=== PATIENT | female | born 1970 | race Two or more races ===

== ENCOUNTER 2017-05-11 12:46 | Emergency (ER) | payer OTHER ==
[~2017-05-11] VITALS: Ht 170.2 cm; Wt 97.1 kg
[~2017-05-11 12:46] MED LIST: CYCLOBENZAPRINE10 MG ORAL; IBUPROFEN600 MG ORAL
[2017-05-11 13:34] LABS: BASOPHILS % (AUTO) 1.1 % (0.0-2.0); EOSINOPHILS % (AUTO) 1.2 % (0.0-3.0); LYMPHOCYTES % (AUTO) 16.3 % (20.0-45.0); MEAN CORPUSCULAR HEMOGLOBIN 32.8 PG (27.0-31.0); MEAN CORPUSCULAR HGB CONC 33.7 G/DL (32.0-36.0); MEAN CORPUSCULAR VOLUME 97 FL (80-99); MEAN PLATELET VOLUME 7.1 FL (6.5-10.1); MONOCYTES % (AUTO) 8.4 % (1.0-10.0); PLATELET COUNT 347 K/UL (150-450); RED BLOOD COUNT 3.74 M/UL (4.20-5.40); RED CELL DISTRIBUTION WIDTH 12.1 % (11.6-14.8); WHITE BLOOD COUNT 7.8 K/UL (4.8-10.8)
[2017-05-11 13:49] LABS: ACETAMINOPHEN < 10 ug/mL (10-30); ALANINE AMINOTRANSFERASE 7 U/L (3-33); ALBUMIN/GLOBULIN RATIO 1.1 (1.0-2.7); ALCOHOL < 10 mg/dL; ASPARTATE AMINO TRANSFERASE 14 U/L (5-40); CALCIUM 9.3 mg/dL (8.6-10.2); CARBON DIOXIDE 28 mEQ/L (20-30); CHLORIDE 97 mEQ/L (98-107); GLOMERULAR FILTRATION RATE > 60 mL/min (>60); HEMOLYSIS 12; SODIUM 139 mEQ/L (135-145); TOTAL PROTEIN 7.8 g/dL (6.6-8.7)
[2017-05-11 13:55] LABS: ANION GAP 14 (5-15)
[2017-05-11 14:01] LABS: POTASSIUM 2.6 mEQ/L (3.4-4.9)
[2017-05-11 14:35] VITALS: BP 131/78
--- NOTE | 2017-05-11 14:46 | Emergency Room Report ---
History of Present Illness General Chief Complaint: General Complaint Source: Patient, Family Member, EMS Present Illness HPI Patient is brought in by EMS against her will. Apparently, the patient was having an argument with her mother. She states that they were having a verbal disagreement. She states that she lifted her mom is like it seems acute on around here and going to leave and take some pills. She went and took 2 of her Motrin because she was having menstrual cramping. She states the next thing she knew her mom had gone next or and use the neighbors phone to call 911 for concern that she was suicidal. The patient states she only took 2 Motrin for her menstrual cramping. She states she was just trying to upset her mother and was frustrated with her. She denies that she is suicidal. She has no intention to harm herself or others. Her mother is bedside and states she may have overreacted. She did not observe her taking any pills. The mother is comfortable with her discharge home. She lives with her mother and is her primary caregiver. The patient is compliant and cooperative. Allergies: Coded Allergies: No Known Allergies (Unverified , 01/16/16) Patient History Past Medical History: see triage record, HTN Social History: Denies: alcohol use, drug use, smoking Last Menstrual Period: 05/09/17 Reviewed Nursing Documentation: PMH: Agreed, PSxH: Agreed Nursing Documentation-PM Past Medical History: No History, Except For Hx Hypertension: Yes History Of Psychiatric Problem: Yes - Anxiety, depression Review of Systems All Other Systems: negative except mentioned in HPI Physical Exam Vital Signs Date Time Temp Pulse Resp B/P Pulse Ox O2 Delivery O2 Flow Rate FiO2 05/11/17 12:42 98.1 125 16 137/102 100 Room Air Sp02 EP Interpretation: reviewed, normal General Appearance: no apparent distress, alert, GCS 15, non-toxic Head: normocephalic, atraumatic Eyes: bilateral eye PERRL, bilateral eye normal inspection ENT: hearing grossly normal, normal pharynx, no angioedema, normal voice Neck: full range of motion, supple/symm/no masses Respiratory: chest non-tender, lungs clear, normal breath sounds, speaking full sentences Cardiovascular #1: regular rate, rhythm, no edema Gastrointestinal: normal bowel sounds, non tender, soft, non-distended, no guarding, no rebound Rectal: deferred Musculoskeletal: back normal, gait/station normal, normal range of motion, non- tender Neurologic: alert, oriented x3, responsive, motor strength/tone normal, sensory intact, speech normal Psychiatric: judgement/insight normal, memory normal, mood/affect normal, no suicidal/homicidal ideation Skin: normal color, no rash, warm/dry, well hydrated Medical Decision Making Diagnostic Impression: Primary Impression: Anger reaction Additional Impressions: Menstrual cramps Hypokalemia ER Course The patient presents for psychiatric screening. The patient is accompanied by her mother who was concerned that she was going to commit suicide. However, the patient took 2 tablets of ibuprofen for menstrual cramping. She states that she is not suicidal. She states she was was treated in having an argument with her mother. She has no intention to harm herself or others. The patient is appropriate. Mother agrees that she may have over-reacted. I do not believe this patient is suicidal and or is a danger to herself or others. The patient is discharged. She did have a low potassium which could have been related to hyperventilation or low potassium intake. Regardless she was given 60 mEq of potassium orally and discharged home. She is instructed on a potassium rich diet. Labs Test 05/11/17 13:11 White Blood Count 7.8 K/UL (4.8-10.8) Red Blood Count 3.74 M/UL (4.20-5.40) Hemoglobin 12.3 G/DL (12.0-16.0) Hematocrit 36.4 % (37.0-47.0) Mean Corpuscular Volume 97 FL (80-99) Mean Corpuscular Hemoglobin 32.8 PG (27.0-31.0) Mean Corpuscular Hemoglobin Concent 33.7 G/DL (32.0-36.0) Red Cell Distribution Width 12.1 % (11.6-14.8) Platelet Count 347 K/UL (150-450) Mean Platelet Volume 7.1 FL (6.5-10.1) Neutrophils (%) (Auto) 73.0 % (45.0-75.0) Lymphocytes (%) (Auto) 16.3 % (20.0-45.0) Monocytes (%) (Auto) 8.4 % (1.0-10.0) Eosinophils (%) (Auto) 1.2 % (0.0-3.0) Basophils (%) (Auto) 1.1 % (0.0-2.0) Sodium Level 139 mEQ/L (135-145) Potassium Level 2.6 mEQ/L (3.4-4.9) Chloride Level 97 mEQ/L (98-107) Carbon Dioxide Level 28 mEQ/L (20-30) Anion Gap 14 (5-15) Blood Urea Nitrogen 14 mg/dL (7-23) Creatinine 1.0 mg/dL (0.5-0.9) Estimat Glomerular Filtration Rate > 60 mL/min (>60) Glucose Level 112 mg/dL (74-106) Calcium Level 9.3 mg/dL (8.6-10.2) Total Bilirubin 0.5 mg/dL (0.0-1.2) Aspartate Amino Transf (AST/SGOT) 14 U/L (5-40) Alanine Aminotransferase (ALT/SGPT) 7 U/L (3-33) Alkaline Phosphatase 63 U/L (35-104) Total Protein 7.8 g/dL (6.6-8.7) Albumin 4.1 g/dL (3.5-5.2) Globulin 3.7 g/dL Albumin/Globulin Ratio 1.1 (1.0-2.7) Salicylates Level < 1 mg/dL (10-30) Acetaminophen Level < 10 ug/mL (10-30) Serum Alcohol < 10 mg/dL Last Vital Signs Date Time Temp Pulse Resp B/P Pulse Ox O2 Delivery O2 Flow Rate FiO2 05/11/17 12:42 98.1 125 16 137/102 100 Room Air Status: improved Disposition: HOME, SELF-CARE Condition: Improved Referrals: NOT CHOSEN IPA/,REFERRING (PCP) DESTINI HOFF D.O. May 11, 2017 14:46
[2017-05-11 14:49] VITALS: BP 131/78
== END 2017-05-11 14:49 | disposition home or self-care (01) ==
LOC: EDBD 12:46 → EMR 13:40
DX: R45.4 Irritability and anger (principal); N94.6 Dysmenorrhea, unspecified; E87.6 Hypokalemia; I10 Essential (primary) hypertension; F41.9 Anxiety disorder, unspecified; F32.9 Major depressive disorder, single episode, unspecified
CPT/HCPCS: 36415; 80053; 85025; 99282; G0480; 80329; J8499

== ENCOUNTER 2018-10-03 11:17 | Emergency (ER) | payer OTHER ==
[~2018-10-03] VITALS: Ht 170.2 cm; Wt 109.8 kg
[2018-10-03 11:24] VITALS: BP 118/84
[2018-10-03] MEDS ORDERED: AMLODIPINE BESY10 MG ORAL (11:27)
[2018-10-03] MEDS ORDERED: HYDROCHLOROTHIA25 MG ORAL (11:27)
[2018-10-03] MEDS ORDERED: AUGMENTIN 875-1 EAC1 ORAL (12:25)
[2018-10-03] MEDS ORDERED: PROMETHAZINE-C118 M1 ORAL (12:29)
[2018-10-03 12:37] VITALS: BP 122/85
--- NOTE | 2018-10-04 07:15 | Emergency Room Report ---
History of Present Illness General Chief Complaint: Upper Respiratory Illness Source: Medical Record Present Illness HPI 48-year-old female presents ED for evaluation. Patient complaining of body aches and cough 2 days. Pain is dull, 7 out of 10, nonradiating. Notes cough with productive phlegm. That sore throat and earache. States she also has swelling to the right side of her neck. States that last time she had similar symptoms she also had that swelling. Was seen by PMD and was prescribed antibiotics. States both her symptoms and the swelling resolved. Denies fevers or chills. Denies sick contacts or recent travel. did not receive flu vaccine. No other aggravating relieving factors. Denies any other associated symptoms Allergies: Coded Allergies: No Known Allergies (Unverified , 01/16/16) Patient History Past Medical History: none Past Surgical History: none Pertinent Family History: none Social History: Denies: smoking, alcohol use, drug use Last Menstrual Period: 09/19/18 Now: No Immunizations: UTD Reviewed Nursing Documentation: PMH: Agreed; PSxH: Agreed Nursing Documentation-PMH Past Medical History: No History, Except For Hx Hypertension: Yes Review of Systems All Other Systems: negative except mentioned in HPI Physical Exam Vital Signs Date Time Temp Pulse Resp B/P (MAP) Pulse Ox O2 Delivery O2 Flow Rate FiO2 10/03/18 11:24 98.2 78 18 118/84 96 Room Air Sp02 EP Interpretation: reviewed, normal General Appearance: no apparent distress, alert, GCS 15, non-toxic Head: normocephalic, atraumatic Eyes: bilateral eye normal inspection, bilateral eye PERRL ENT: hearing grossly normal, no angioedema, normal voice, pharyngeal erythema, other - bilateral TM poor light reflex Neck: full range of motion, supple, no meningismus, supple/symm/no masses Respiratory: chest non-tender, lungs clear, normal breath sounds, speaking full sentences Cardiovascular #1: normal inspection Gastrointestinal: normal inspection Rectal: deferred Genitourinary: no CVA tenderness Musculoskeletal: normal inspection Neurologic: alert, oriented x3, responsive, motor strength/tone normal, sensory intact, speech normal Psychiatric: normal inspection Skin: normal inspection Lymphatic: adenopathy - R submandibular LAD Medical Decision Making Diagnostic Impression: Primary Impression: Lymphadenopathy Additional Impression: Upper respiratory infection Qualified Codes: J06.9 - Acute upper respiratory infection, unspecified ER Course Hospital Course 48-year-old female presents to ED complaining of cough, bodyaches, Differential diagnoses include: URI, pharyngitis, otitis media, asthma Clinical course Patient placed on stretcher. After initial history, physical exam reveals a female in no acute distress. Bilateral TM cloudy. minimal pharyngeal erythema. No tonsillar exudates. noted R submandibular lymphadenopathy. lungs clear. abdomen soft. Discussed findings with patient. Presentation consistent with viral however there is impressive adenopathy. We will prescribe antibiotics. I didn't discuss the consideration of malignancy with the patient as a source of the lymphadenopathy. Patient displays understanding and states that she will follow -up with her PMD if the lymphadenopathy does not resolve after antibiotics for further workup. there is no family history of cancer Diagnosis - URI, lymphadenopathy Stable and discharged home with Rx Augmentin, promethazine/codeine. Instructed to followup with PMD. Return to ED if symptoms recur or worsen Last Vital Signs Date Time Temp Pulse Resp B/P (MAP) Pulse Ox O2 Delivery O2 Flow Rate FiO2 10/03/18 12:37 98.5 88 14 122/85 98 Room Air Status: improved Disposition: HOME, SELF-CARE Condition: Stable Scripts Codeine/Promethazine Hcl* (PROMETHAZINE-CODEINE SYRUP*) 118 Ml Syrup 5 ML ORAL Q6H PRN for For Cough, #118 ML 0 Refills Prov: Aldo Falcon MD 10/03/18 Amoxicillin/Potassium Clav 875-125* (AUGMENTIN 875-125 TABLET*) 1 Each Tablet 1 TAB ORAL TWICE A DAY, #14 TAB Prov: Aldo Falcon MD 10/03/18 Patient Instructions: Lymphadenopathy Aldo Falcon MD Oct 04, 2018 07:15
== END 2018-10-03 12:37 | disposition home or self-care (01) ==
LOC: EMR 12:00
DX: J06.9 Acute upper respiratory infection, unspecified (principal); R59.0 Localized enlarged lymph nodes; I10 Essential (primary) hypertension
CPT/HCPCS: 99283